=== PATIENT | male | born 1960 | race African-American/Black ===

== ENCOUNTER 2017-11-08 08:07 | Emergency (ER) | payer OTHER ==
[~2017-11-08] VITALS: Ht 180.3 cm; Wt 115.0 kg
[~2017-11-08 08:07] MED LIST: CYCL-36 PO; LOVA20TA PO; VASO10TA8 PO
[2017-11-08 08:14] VITALS: BP 163/101; PULSE 71; RESP 20; TEMP 98.1; O2SAT 97
[2017-11-08 08:32] VITALS: BP 144/95; PULSE 75; RESP 18; O2SAT 97
[2017-11-08] MEDS ORDERED: OMEP20TA93 PO (08:32)
[2017-11-08] MEDS ORDERED: LOVA20TA PO (08:32)
[2017-11-08] MEDS ORDERED: ENAL10TA PO (08:32)
[2017-11-08] MEDS ORDERED: HYDR-3583 PO (08:32)
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
[2017-11-08 11:40] VITALS: BP 142/92
== END 2017-11-08 11:45 | disposition home or self-care (01) ==
LOC: NEPE 08:07
DX: S20.212A Contusion of left front wall of thorax, initial encounter (principal); V43.52XA Car driver injured in collision with other type car in traffic accident, initial encounter
CPT/HCPCS: 71045; 72170; 99284